=== PATIENT | male | born 1960 | race Caucasian/White ===

== ENCOUNTER 2017-12-23 20:22 | Emergency (ER) | payer OTHER ==
[~2017-12-23] VITALS: Ht 175.3 cm; Wt 59.2 kg
[~2017-12-23 20:22] MED LIST: ALEVE220 M1 PO; AMOXICILLIN500 MG; AMOXICILLIN500 MG PO; CALADRYL EX; CEPHALEXIN500 MG OR; FLEXERIL PO; HYDROXYZ PAM50 MG PO; IBUPROFEN200 MG PO; LEVETIRACETAM500 MG PO; LORTAB 5 OR; LORTAB 5-325 MG1 TAB PO; MEDROL4 M1 OR; MOTRIN800 MG PO; NAPROXEN500 MG OR; NO HOME MEDS; PERCOCET 5/325M1 TAB PO; ROBITUSSIN AC10 ML PO; TESSALON PER100 MG PO; ULTRAM50 M1 PO; VENTOLIN HFA IN; VOLTAREN OP; ZITHROMAX250 MG PO; ZITHROMAX500 MG OR; ZPAK PO
[2017-12-23 21:04] LABS: INFLUENZA A NONE DETECTED (NONE DETECT); INFLUENZA B NONE DETECTED (NONE DETECT)
[2017-12-23] MEDS ORDERED: TAM75CAP PO (21:15)
[2017-12-23 21:49] LABS: ALBUMIN 4.1 g/dL (3.2-5.0); ALKALINE PHOSPHATASE 80 u/l (38-126); ANION GAP 15 (6-22 (CALC)); BILIRUBIN, TOTAL 0.4 mg/dL (0.0-1.4); BUN 13 mg/dL (9-20); BUN/CREATININE RATIO 13 (12-20 (CALC)); CARBON DIOXIDE 25 mmol/l (22-30); CHLORIDE 105 mmol/l (95-108); GFR > 60 ML/MIN (>=60 (CALC)); GFR FOR AFR.AMER. > 60 ML/MIN (>=60 (CALC)); SGOT/AST 25 u/l (17-59); SGPT/ALT 28 u/l (21-72); SODIUM 140 mmol/l (137-146)
[2017-12-23 21:56] LABS: HEMATOCRIT 40.4 % (39.0-50.0); HEMOGLOBIN 14.2 g/dl (14.0-18.0); IMMATURE GRANULOCYTES 0.2 % (0.0-1.0); MEAN CELL VOLUME 94.6 fL CALC (80.0-100.0); MEAN CORPUSCULAR HGB 33.3 pG CALC (26.0-32.0); MEAN CORPUSCULAR HGB CONC 35.1 g/L CALC (32.0-36.0); NEUT# 3.92 thou/uL (1.82-7.42); RED BLOOD COUNT 4.27 mill/uL (4.70-6.10); RED CELL DISTRI WIDTH 11.8 % (11.5-15.5)
[2017-12-23 22:50] VITALS: BP 135/78
== END 2017-12-23 22:51 | disposition home or self-care (01) | DRG 153 ==
LOC: ED 20:22
PROVIDERS: Family Medicine
DX: J11.1 Influenza due to unidentified influenza virus with other respiratory manifestations (principal); G40.909 Epilepsy, unspecified, not intractable, without status epilepticus

== ENCOUNTER 2018-01-21 18:50 | Observation (INO) | payer OTHER ==
[~2018-01-21] VITALS: Ht 175.3 cm; Wt 60.3 kg
[~2018-01-21 18:50] MED LIST changes: +TAM75CAP PO
--- NOTE | 2018-01-21 18:55 | NUR ---
RECEIVED VIA EMS. FOUND ON BATHROOM FLOOR. VALIUM 10MG IV GIVEN BY EMS. PT WITH C-COLLAR ON BACKBOARD.
--- NOTE | 2018-01-21 19:24 | NUR ---
PT TO CT.
[2018-01-21 19:29] LABS: HEMATOCRIT 41.5 % (39.0-50.0); HEMOGLOBIN 13.9 g/dl (14.0-18.0); IMMATURE GRANULOCYTES 0.2 % (0.0-1.0); MEAN CELL VOLUME 97.9 fL CALC (80.0-100.0); MEAN CORPUSCULAR HGB 32.8 pG CALC (26.0-32.0); MEAN CORPUSCULAR HGB CONC 33.5 g/L CALC (32.0-36.0); NEUT# 4.61 thou/uL (1.82-7.42); RED BLOOD COUNT 4.24 mill/uL (4.70-6.10); RED CELL DISTRI WIDTH 12.4 % (11.5-15.5)
--- NOTE | 2018-01-21 19:45 | NUR ---
RETURNED FROM CT.
[2018-01-21 20:00] LABS: ALBUMIN 3.8 g/dL (3.2-5.0); ALKALINE PHOSPHATASE 71 u/l (38-126); ANION GAP 15 (6-22 (CALC)); BILIRUBIN, TOTAL 0.7 mg/dL (0.0-1.4); BUN 16 mg/dL (9-20); BUN/CREATININE RATIO 17 (12-20 (CALC)); CARBON DIOXIDE 25 mmol/l (22-30); CHLORIDE 108 mmol/l (95-108); GFR > 60 ML/MIN (>=60 (CALC)); GFR FOR AFR.AMER. > 60 ML/MIN (>=60 (CALC)); POTASSIUM 3.8 mmol/l (3.5-5.1); SGOT/AST 30 u/l (17-59); SGPT/ALT 29 u/l (21-72); SODIUM 144 mmol/l (137-146); TOTAL PROTEIN 6.6 g/dL (6.3-8.2)
--- NOTE | 2018-01-21 20:02 | NUR ---
DR PEARL AT BEDSIDE. REMOVED C-COLLAR AND PT FROM BACKBOARD.
[2018-01-21 20:12] LABS: MYOGLOBIN 124 ng/mL (0 - 121)
--- NOTE | 2018-01-21 20:17 | NUR ---
PT SPEECH CLEAR, MOVES ALL EXTREMITIES. FAMILY AT BEDSIDE.
--- NOTE | 2018-01-21 20:55 | NUR ---
PT WITH EYES CLOSED, EVEN AND UNLABORED RESP. CALL CORNEJO IN REACH.
[2018-01-21 21:25] LABS: URINE BILIRUBIN - DIPSTICK NEGATIVE (NEGATIVE); URINE BLOOD DIPSTICK SMALL (NEGATIVE); URINE COLOR YELLOW; URINE GLUCOSE - DIPSTICK NEGATIVE (NEGATIVE); URINE KETONE 15 mg/dL (NEGATIVE); URINE LEUK ESTERASE NEGATIVE (NEGATIVE); URINE NITRITE - DIPSTICK NEGATIVE (Negative); URINE PROTEIN - DIPSTICK NEGATIVE (NEG-TRACE); URINE UROBILINOGEN - DIPSTICK 0.2 E.U./dL (0.2)
[2018-01-21 21:26] LABS: URINE CLARITY CLEAR; URINE SQUAMOUS EPITHELIAL CELL FEW EPI/hpf (0-FEW)
[2018-01-21 21:33] LABS: BARBITURATES NEGATIVE (NEGATIVE); COCAINE NEGATIVE (NEGATIVE); METHADONE NEGATIVE (NEGATIVE); OXCYCODONE NEGATIVE (NEGATIVE); TETRAHYDROCANNABIONOL NEGATIVE (NEGATIVE); TRICYLIC ANTIDEPRESSANTS NEGATIVE (NEGATIVE)
--- NOTE | 2018-01-21 21:46 | NUR ---
S/O WENT THROUGH PTS CLOTHES.
--- NOTE | 2018-01-21 22:49 | NUR ---
PT RESPONDS TO LOUD VERBAL STIMULI. ORIENTED TO PERSON, PLACE. INFORMED OF ADM.
--- NOTE | 2018-01-21 23:22 | NUR ---
REPORT CALLED TO [facility].
[2018-01-21 23:30] VITALS: BP 117/79
--- NOTE | 2018-01-21 23:30 | NUR ---
PT TO 279 ON TELE WITH RN.
--- NOTE | 2018-01-21 23:30 | NUR ---
PT ARRIVED TO THE FLOOR WITH ER STAFF. PT TRANSFERED TO BED X3 PERSON ASSIST. PT LETHARGIC. VITAL SIGNS OBTAINED. PT ORIENTED TO ROOM AND CALL LIGHT SYSTEM. RESP EVEN AND UNLABORED; NO DISTRESS NOTED. TELE IN PLACE. ABD SOFT; ACTIVE BOWEL SOUNDS NOTED. PT CONTINUED TO HAVE EYES CLOSED WHILE ANSWERING ADMIT QUESTIONS. PEDAL PULSES PALPATED BILAT. PT LOWER EXTREMITIES CLEANED UP DUE TO HAVING DIRT ON FEET. IV LAC PATENT; FLUSHED WITHOUT DIFFICULTY. IV RAC PATENT; FLUSHED WITHOUT DIFFICULTY. SEIZURE PRECAUTIONS IN PLACE; SUCTION AT BEDSIDE. FAMILY MEMBER AT BEDSIDE. SAFETY PRECAUTIONS REINFORCED. PT ENCOURAGED TO CALL FOR ASSISTANCE. WILL MONITOR CLOSELY; FREQUENT ROUNDS MADE. CALL LIGHT WITHIN REACH.
--- NOTE | 2018-01-22 00:08 | NUR ---
PT STATES PAIN IN LOWER BACK; CALLED. NEW ORDER RECIEVED AT THIS TIME. WILL MONITOR CLOSELY. CALL LIGHT WITHIN REACH.
--- NOTE | 2018-01-22 02:46 | NUR ---
ROUNDS MADE; FAMILY OF PT STATED THE PT WAS STANDING UP BY SIDE OF BED. BED ALARM ON FOR SAFETY. PT RESTING IN BED WITH EYES CLOSED UPON ENTRY. RESP EVEN AND UNLABORED. TELE IN PLACE. IV PATENT; NO REDNESS OR EDEMA NOTED. CALL LIGHT WITHIN REACH.
[2018-01-22 04:24] VITALS: BP 114/63
--- NOTE | 2018-01-22 04:40 | NUR ---
ROUNDS MADE; PT WOKE TO SPEECH. RESP EVEN AND UNLABORED. PT WILL OPEN EYES WHEN ASKED. TELE IN PLACE. IV PATENT; NO REDNESS OR EDEMA NOTED. CALL LIGHT WITHIN REACH.
[2018-01-22 05:26] LABS: HEMATOCRIT 40.5 % (39.0-50.0); HEMOGLOBIN 13.5 g/dl (14.0-18.0); IMMATURE GRANULOCYTES 0.3 % (0.0-1.0); MEAN CELL VOLUME 98.3 fL CALC (80.0-100.0); MEAN CORPUSCULAR HGB 32.8 pG CALC (26.0-32.0); MEAN CORPUSCULAR HGB CONC 33.3 g/L CALC (32.0-36.0); NEUT# 4.9 thou/uL (1.82-7.42); RED BLOOD COUNT 4.12 mill/uL (4.70-6.10); RED CELL DISTRI WIDTH 12.3 % (11.5-15.5)
[2018-01-22 05:48] LABS: ANION GAP 15 (6-22 (CALC)); BUN 14 mg/dL (9-20); BUN/CREATININE RATIO 17 (12-20 (CALC)); CARBON DIOXIDE 22 mmol/l (22-30); CHLORIDE 109 mmol/l (95-108); CREATININE 0.8 mg/dL (0.7-1.3); GFR > 60 ML/MIN (>=60 (CALC)); GFR FOR AFR.AMER. > 60 ML/MIN (>=60 (CALC)); POTASSIUM 4.2 mmol/l (3.5-5.1); SODIUM 142 mmol/l (137-146)
--- NOTE | 2018-01-22 07:00 | NUR ---
SHIFT CHANGE REPORT FROM FAN, PT SLEEPING, AROUSES TO AND RESPONDS VERBAL/TACTILE STIMULI, ANSWERS APPROPRIATE BUT DOES NOT OPEN EYES, DENIES PAIN, BED RAILS PADDED, IVF INFUSING, TELE MONITOR IN PLACE, BED ALARM ON, CALL CORNEJO IN REACH, SPOUSE IN ROOM.
[2018-01-22 08:15] VITALS: BP 115/71
[2018-01-22 11:00] VITALS: BP 116/64
--- NOTE | 2018-01-22 12:00 | NUR ---
PT SLEPT ALL AM, SPOUSE CALLED REPORTING HE WAS VOMITTING, ON ASSESSMENT PT HAD LIQUID VOMIT ON CLOTHING. BED BATH & LINNEN CHANGE DONE, WILL ADDRESS CONCERNS [place], CALL [place]NEJO IN REACH, BED ALARM ON.
[2018-01-22 16:00] VITALS: BP 116/74
[2018-01-22] MEDS ORDERED: LEVETIRACETAM500 MG PO (18:08)
--- NOTE | 2018-01-22 18:45 | NUR ---
AWAKE AND ALERT NOW, MORE TALKATIVE, STATES HE STILL HAS BACK PAIN BUT IMPROVED, EYES OPENED, EDUCATED ON IMPORTANCE OF TAKING MEDS PRESCRIBED.
--- NOTE | 2018-01-22 19:05 | NUR ---
Discharge instructions given. Patient verbalizes understanding of same. Discharged in stable condition via Wheelchair to Home with spouse. All belongings sent with pt.
== END 2018-01-22 19:05 | disposition home or self-care (01) | DRG 101 ==
LOC: ED 18:50 → ED-I 22:05 → ED 23:00 → MS2 23:01
PROVIDERS: Emergency Medicine; ADMIT Internal Medicine; ATTEND Internal Medicine
DX: G40.409 Other generalized epilepsy and epileptic syndromes, not intractable, without status epilepticus (principal); F17.210 Nicotine dependence, cigarettes, uncomplicated; Z91.14 Patient's other noncompliance with medication regimen
CPT/HCPCS: G0378; J2060; J3360

== ENCOUNTER 2018-01-24 20:53 | Emergency (ER) | payer OTHER ==
[~2018-01-24] VITALS: Ht 175.3 cm; Wt 66.0 kg
[2018-01-24] MEDS ORDERED: FLEXERIL PO (23:05)
[2018-01-24] MEDS ORDERED: ULTRAM50 M1 PO (23:05)
[2018-01-24 23:15] VITALS: BP 130/80
== END 2018-01-24 23:15 | disposition home or self-care (01) | DRG 552 ==
LOC: ED 20:53
DX: S33.5XXA Sprain of ligaments of lumbar spine, initial encounter (principal); M47.816 Spondylosis without myelopathy or radiculopathy, lumbar region; G40.909 Epilepsy, unspecified, not intractable, without status epilepticus; W19.XXXA Unspecified fall, initial encounter

== ENCOUNTER 2018-10-28 19:28 | Emergency (ER) | payer OTHER ==
[~2018-10-28] VITALS: Ht 175.3 cm; Wt 65.9 kg
[2018-10-28 20:09] LABS: HEMATOCRIT 45.1 % (39.0-50.0); IMMATURE GRANULOCYTES 0.2 % (0.0-5.0); MEAN CELL VOLUME 94.7 fL CALC (80.0-100.0); MEAN CORPUSCULAR HGB 32.6 pG CALC (26.0-32.0); MEAN CORPUSCULAR HGB CONC 34.4 g/L CALC (32.0-36.0); NEUT# 3.49 thou/uL (1.82-7.42); RED BLOOD COUNT 4.76 mill/uL (4.70-6.10); RED CELL DISTRI WIDTH 11.8 % (11.5-15.5)
[2018-10-28 20:11] LABS: HEMOGLOBIN 15.5 g/dl (14.0-18.0)
[2018-10-28 20:25] LABS: ALBUMIN 4.4 g/dL (3.2-5.0); ALKALINE PHOSPHATASE 90 u/l (38-126); AMYLASE 52 u/l (30-110); ANION GAP 16 (6-22 (CALC)); BILIRUBIN, TOTAL 0.7 mg/dL (0.0-1.4); BUN 17 mg/dL (9-20); BUN/CREATININE RATIO 19 (12-20 (CALC)); CARBON DIOXIDE 26 mmol/l (22-30); CHLORIDE 101 mmol/l (95-108); CREATININE 0.9 mg/dL (0.7-1.3); GFR > 60 ML/MIN (>=60 (CALC)); GFR FOR AFR.AMER. > 60 ML/MIN (>=60 (CALC)); LIPASE 81 u/l (23-300); SGOT/AST 34 u/l (17-59); SODIUM 140 mmol/l (137-146); TOTAL PROTEIN 7.5 g/dL (6.3-8.2)
[2018-10-28 20:55] LABS: URINE BILIRUBIN - DIPSTICK NEGATIVE (NEGATIVE); URINE BLOOD DIPSTICK SMALL (NEGATIVE); URINE COLOR YELLOW; URINE GLUCOSE - DIPSTICK NEGATIVE (NEGATIVE); URINE KETONE 15 mg/dL (NEGATIVE); URINE LEUK ESTERASE NEGATIVE (NEGATIVE); URINE NITRITE - DIPSTICK NEGATIVE (Negative); URINE PROTEIN - DIPSTICK NEGATIVE (NEG-TRACE); URINE SPECIFIC GRAVITY >=1.030; URINE UROBILINOGEN - DIPSTICK 0.2 E.U./dL (0.2)
[2018-10-28] MEDS ORDERED: LOMOTIL2.5 MG PO (21:32)
[2018-10-28 21:34] VITALS: BP 125/82
[2018-10-28 21:36] LABS: URINE SQUAMOUS EPITHELIAL CELL FEW EPI/hpf (0-FEW)
== END 2018-10-28 21:38 | disposition home or self-care (01) | DRG 392 ==
LOC: ED 19:28
PROVIDERS: Family Medicine
DX: A08.4 Viral intestinal infection, unspecified (principal); R10.33 Periumbilical pain; R19.7 Diarrhea, unspecified

== ENCOUNTER 2019-01-04 11:54 | Emergency (ER) | payer SELFPAY ==
[~2019-01-04] VITALS: Ht 175.3 cm; Wt 65.0 kg
[~2019-01-04 11:54] MED LIST changes: +LOMOTIL2.5 MG PO
[2019-01-04] MEDS ORDERED: TORADOL PO ×2 (13:27→13:49)
[2019-01-04] MEDS ORDERED: CORTISPORIN OTI10 M2 AU ×2 (13:27→13:49)
[2019-01-04] MEDS ORDERED: AMOXICILLIN500 MG PO ×2 (13:27→13:49)
[2019-01-04 13:30] VITALS: BP 139/77
== END 2019-01-04 13:58 | disposition home or self-care (01) | DRG 153 ==
LOC: ED 11:54
DX: H66.92 Otitis media, unspecified, left ear (principal); G40.909 Epilepsy, unspecified, not intractable, without status epilepticus

== ENCOUNTER 2019-04-27 21:29 | Emergency (ER) | payer SELFPAY ==
[~2019-04-27] VITALS: Ht 175.3 cm; Wt 56.8 kg
[~2019-04-27 21:29] MED LIST changes: +CORTISPORIN OTI10 M2 AU; +TORADOL PO
[2019-04-27 22:23] LABS: HEMATOCRIT 41.6 % (39.0-50.0); HEMOGLOBIN 13.9 g/dl (14.0-18.0); IMMATURE GRANULOCYTES 0.2 % (0.0-5.0); MEAN CORPUSCULAR HGB 32.4 pG CALC (26.0-32.0); MEAN CORPUSCULAR HGB CONC 33.4 g/L CALC (32.0-36.0); NEUT# 3.39 thou/uL (1.82-7.42); RED BLOOD COUNT 4.29 mill/uL (4.70-6.10); RED CELL DISTRI WIDTH 12.1 % (11.5-15.5)
[2019-04-27 22:48] LABS: ALBUMIN 4.1 g/dL (3.2-5.0); ALKALINE PHOSPHATASE 87 u/l (38-126); ANION GAP 16 (6-22 (CALC)); BILIRUBIN, TOTAL 0.6 mg/dL (0.0-1.4); BUN 17 mg/dL (9-20); BUN/CREATININE RATIO 21 (12-20 (CALC)); CARBON DIOXIDE 24 mmol/l (22-30); CHLORIDE 106 mmol/l (95-108); CREATININE 0.8 mg/dL (0.7-1.3); ETHYL ALCOHOL 79 mg/dl (0-30); GFR > 60 ML/MIN (>=60 (CALC)); GFR FOR AFR.AMER. > 60 ML/MIN (>=60 (CALC)); POTASSIUM 4.3 mmol/l (3.5-5.1); SGOT/AST 30 u/l (17-59); SODIUM 141 mmol/l (137-146); TOTAL PROTEIN 6.9 g/dL (6.3-8.2)
[2019-04-27 23:38] LABS: URINE BILIRUBIN - DIPSTICK NEGATIVE (NEGATIVE); URINE BLOOD DIPSTICK TRACE-LYSED (NEGATIVE); URINE COLOR YELLOW; URINE GLUCOSE - DIPSTICK NEGATIVE (NEGATIVE); URINE KETONE NEGATIVE (NEGATIVE); URINE LEUK ESTERASE NEGATIVE (NEGATIVE); URINE NITRITE - DIPSTICK NEGATIVE (Negative); URINE PROTEIN - DIPSTICK NEGATIVE (NEG-TRACE); URINE SPECIFIC GRAVITY 1.015; URINE UROBILINOGEN - DIPSTICK 0.2 E.U./dL (0.2)
[2019-04-27 23:43] LABS: BARBITURATES NEGATIVE (NEGATIVE); COCAINE NEGATIVE (NEGATIVE); METHADONE NEGATIVE (NEGATIVE); OXCYCODONE NEGATIVE (NEGATIVE); TETRAHYDROCANNABIONOL NEGATIVE (NEGATIVE); TRICYLIC ANTIDEPRESSANTS NEGATIVE (NEGATIVE)
[2019-04-28] MEDS ORDERED: KEPPRA1000 MG PO (00:16)
[2019-04-28 00:35] VITALS: BP 107/72
== END 2019-04-28 00:35 | disposition home or self-care (01) | DRG 101 ==
LOC: ED 21:29
PROVIDERS: Family Medicine
DX: G40.909 Epilepsy, unspecified, not intractable, without status epilepticus (principal); T42.76XA Underdosing of unspecified antiepileptic and sedative-hypnotic drugs, initial encounter; Z91.128 Patient's intentional underdosing of medication regimen for other reason
CPT/HCPCS: J1953

== ENCOUNTER 2019-08-20 15:06 | Emergency (ER) | payer SELFPAY ==
[~2019-08-20] VITALS: Ht 175.3 cm; Wt 65.0 kg
[~2019-08-20 15:06] MED LIST changes: +KEPPRA1000 MG PO
[2019-08-20 15:31] LABS: URINE BILIRUBIN - DIPSTICK NEGATIVE (NEGATIVE); URINE BLOOD DIPSTICK LARGE (NEGATIVE); URINE COLOR YELLOW; URINE GLUCOSE - DIPSTICK NEGATIVE (NEGATIVE); URINE KETONE NEGATIVE (NEGATIVE); URINE NITRITE - DIPSTICK NEGATIVE (Negative); URINE PH 5.5 (4.5-8.0); URINE PROTEIN - DIPSTICK 100 mg/dL (NEG-TRACE); URINE SPECIFIC GRAVITY 1.025; URINE UROBILINOGEN - DIPSTICK 0.2 E.U./dL (0.2)
[2019-08-20 15:32] LABS: URINE LEUK ESTERASE MODERATE (NEGATIVE)
[2019-08-20 15:46] LABS: URINE WBC >100 WBC/hpf (0-5)
[2019-08-20] MEDS ORDERED: PYRIDIUM200 MG PO (16:24)
[2019-08-20] MEDS ORDERED: KEFLEX500 M1 PO (16:24)
[2019-08-20 16:30] VITALS: BP 129/74
== END 2019-08-20 16:30 | disposition home or self-care (01) | DRG 690 ==
LOC: ED 15:06
PROVIDERS: Family Medicine
DX: N39.0 Urinary tract infection, site not specified (principal); B96.20 Unspecified Escherichia coli [E. coli] as the cause of diseases classified elsewhere

== ENCOUNTER 2020-07-01 10:56 | Emergency (ER) | payer SELFPAY ==
[~2020-07-01] VITALS: Ht 175.3 cm; Wt 65.9 kg
[~2020-07-01 10:56] MED LIST changes: +KEFLEX500 M1 PO; +PYRIDIUM200 MG PO
[2020-07-01 11:55] VITALS: BP 141/81
== END 2020-07-01 11:55 | disposition home or self-care (01) | DRG 923 ==
LOC: ED 10:56
DX: Z04.2 Encounter for examination and observation following work accident (principal)

== ENCOUNTER 2022-06-05 17:24 | Emergency (ER) | payer SELFPAY ==
[~2022-06-05] VITALS: Ht 175.3 cm; Wt 65.9 kg
[2022-06-05] MEDS ORDERED: AMOX/K CLAV875 M1 PO (17:36)
[2022-06-05 17:44] VITALS: BP 128/79
[2022-06-05 17:51] VITALS: BP 128/79
[2022-06-05 18:00] VITALS: BP 120/73
[2022-06-06] MEDS ORDERED: VOLTAREN75 MG PO (18:25)
[2022-06-06] MEDS ORDERED: TYLENOL # 31 TA1 PO (18:25)
== END 2022-06-05 18:20 | disposition home or self-care (01) | DRG 159 ==
LOC: ED 17:24
DX: K08.89 Other specified disorders of teeth and supporting structures (principal); K05.10 Chronic gingivitis, plaque induced; G40.909 Epilepsy, unspecified, not intractable, without status epilepticus

== ENCOUNTER 2022-06-06 17:18 | Emergency (ER) | payer SELFPAY ==
[~2022-06-06] VITALS: Ht 175.3 cm; Wt 79.5 kg
[~2022-06-06 17:18] MED LIST changes: +AMOX/K CLAV875 M1 PO
[2022-06-06 17:28] VITALS: BP 137/74
[2022-06-06 17:30] VITALS: BP 131/74
[2022-06-06 18:00] VITALS: BP 139/64
[2022-06-06] MEDS ORDERED: TYLENOL # 31 TA1 PO (18:25)
[2022-06-06] MEDS ORDERED: VOLTAREN75 MG PO (18:25)
[2022-06-06 18:40] VITALS: BP 139/64
== END 2022-06-06 18:48 | disposition home or self-care (01) | DRG 159 ==
LOC: ED 17:18
DX: K04.7 Periapical abscess without sinus (principal); G40.909 Epilepsy, unspecified, not intractable, without status epilepticus; K02.9 Dental caries, unspecified

== ENCOUNTER 2022-06-23 20:09 | Emergency (ER) | payer SELFPAY ==
[~2022-06-23 20:09] MED LIST changes: +TYLENOL # 31 TA1 PO; +VOLTAREN75 MG PO
== END 2022-06-23 21:10 | disposition left against medical advice (07) | DRG 951 ==
LOC: ED 20:09 → LWOBS 21:09
DX: Z53.21 Procedure and treatment not carried out due to patient leaving prior to being seen by health care provider (principal)

== ENCOUNTER 2022-07-03 09:36 | Emergency (ER) | payer SELFPAY ==
[~2022-07-03] VITALS: Ht 175.3 cm; Wt 61.2 kg
[2022-07-03] MEDS ORDERED: FLEXERIL5 M1 PO (11:34)
[2022-07-03 11:53] VITALS: BP 124/72
== END 2022-07-03 11:59 | disposition home or self-care (01) | DRG 556 ==
LOC: ED 09:36
DX: M25.522 Pain in left elbow (principal); G40.909 Epilepsy, unspecified, not intractable, without status epilepticus

== ENCOUNTER 2022-07-06 19:43 | Observation (INO) | payer SELFPAY ==
[2022-07-06] VITALS (17 sets, daily range): BP systolic 87–125; BP diastolic 45–95
[~2022-07-06] VITALS: Ht 175.3 cm; Wt 63.5 kg
[~2022-07-06 19:43] MED LIST changes: +FLEXERIL5 M1 PO
[2022-07-06 20:24] LABS: HEMOGLOBIN 13.3 g/dl (14.0-18.0); IMMATURE GRANULOCYTES 0.1 % (0.0-5.0); MEAN CELL VOLUME 99.8 fL CALC (80.0-100.0); MEAN CORPUSCULAR HGB 33.2 pG CALC (26.0-32.0); MEAN CORPUSCULAR HGB CONC 33.3 g/dL CAL (32.0-36.0); NEUT# 5.46 thou/uL (1.82-7.42); RED BLOOD COUNT 4.01 mill/uL (4.70-6.10)
[2022-07-06 20:25] LABS: URINE BILIRUBIN - DIPSTICK NEGATIVE (NEGATIVE); URINE BLOOD DIPSTICK NEGATIVE (NEGATIVE); URINE COLOR YELLOW; URINE GLUCOSE - DIPSTICK NEGATIVE (NEGATIVE); URINE KETONE NEGATIVE (NEGATIVE); URINE LEUK ESTERASE NEGATIVE (NEGATIVE); URINE PH 5.5 (4.5-8.0); URINE PROTEIN - DIPSTICK NEGATIVE (NEG-TRACE); URINE UROBILINOGEN - DIPSTICK 0.2 E.U./dL (0.2)
[2022-07-06 20:28] LABS: URINE NITRITE - DIPSTICK NEGATIVE (Negative)
[2022-07-06 20:40] LABS: ALBUMIN 4.2 g/dL (3.2-5.0); ALKALINE PHOSPHATASE 73 u/l (38-126); ANION GAP 13 (6-22 (CALC)); BUN 14 mg/dL (8-23); BUN/CREATININE RATIO 13 (12-20 (CALC)); CARBON DIOXIDE 28 mmol/l (22-30); CHLORIDE 103 mmol/l (95-108); CREATININE 1.1 mg/dL (0.7-1.3); ETHYL ALCOHOL 82 mg/dl (0-30); GFR FOR AFR.AMER. > 60 ML/MIN (>=60 (CALC)); GFR OTHER RACES > 60 ML/MIN (>=60 (CALC)); POTASSIUM 3.6 mmol/l (3.5-5.1); SGOT/AST 34 u/l (19-48); SODIUM 139 mmol/l (137-146); TOTAL PROTEIN 7.3 g/dL (6.3-8.2)
[2022-07-06 20:41] LABS: BILIRUBIN, TOTAL 0.9 mg/dL (0.0-1.4)
[2022-07-06 20:51] LABS: MYOGLOBIN 151 ng/mL (0 - 121)
[2022-07-07 04:17] VITALS: BP 110/67
[2022-07-07 05:54] VITALS: BP 101/73
[2022-07-07 06:35] VITALS: BP 101/73
[2022-07-07 12:13] VITALS: BP 138/80
[2022-07-07 15:00] VITALS: BP 117/67
[2022-07-07 15:35] VITALS: BP 117/67
== END 2022-07-07 18:24 | disposition home or self-care (01) | DRG 101 ==
LOC: ED 19:43 → ED-I 22:15 → ED 22:30 → MS2 22:31
PROVIDERS: Emergency Medicine; ADMIT Internal Medicine; ATTEND Internal Medicine
DX: G40.409 Other generalized epilepsy and epileptic syndromes, not intractable, without status epilepticus (principal); F17.200 Nicotine dependence, unspecified, uncomplicated; T42.76XA Underdosing of unspecified antiepileptic and sedative-hypnotic drugs, initial encounter; Z91.128 Patient's intentional underdosing of medication regimen for other reason; Z20.822 Contact with and (suspected) exposure to COVID-19
CPT/HCPCS: G0378; J1953; J2060

== ENCOUNTER 2022-07-23 19:12 | Emergency (ER) | payer SELFPAY ==
[~2022-07-23] VITALS: Ht 175.3 cm; Wt 63.6 kg
[2022-07-23] MEDS ORDERED: AMOXICILLIN500 MG PO (20:31)
[2022-07-23] MEDS ORDERED: ULTRAM50 M1 PO (20:31)
[2022-07-23 20:43] VITALS: BP 145/80
== END 2022-07-23 20:58 | disposition home or self-care (01) | DRG 159 ==
LOC: ED 19:12
DX: K04.7 Periapical abscess without sinus (principal); G40.909 Epilepsy, unspecified, not intractable, without status epilepticus

== ENCOUNTER 2022-08-05 19:48 | Emergency (ER) | payer SELFPAY ==
[~2022-08-05] VITALS: Ht 175.3 cm; Wt 61.3 kg
[2022-08-05] MEDS ORDERED: TESSALON PERLE100 MG PO (20:26)
[2022-08-05] MEDS ORDERED: ZPAK PO (20:26)
[2022-08-05 20:43] LABS: HEMATOCRIT 43.2 % (39.0-50.0); HEMOGLOBIN 14.4 g/dl (14.0-18.0); IMMATURE GRANULOCYTES 0.1 % (0.0-5.0); MEAN CORPUSCULAR HGB 33.3 pG CALC (26.0-32.0); MEAN CORPUSCULAR HGB CONC 33.3 g/dL CAL (32.0-36.0); NEUT# 7.65 thou/uL (1.82-7.42); RED BLOOD COUNT 4.32 mill/uL (4.70-6.10); RED CELL DISTRI WIDTH 11.7 % (11.5-15.5)
[2022-08-05 21:02] LABS: ALKALINE PHOSPHATASE 86 u/l (38-126); ANION GAP 11 (6-22 (CALC)); BUN 11 mg/dL (8-23); BUN/CREATININE RATIO 14 (12-20 (CALC)); CARBON DIOXIDE 24 mmol/l (22-30); CHLORIDE 105 mmol/l (95-108); CREATININE 0.8 mg/dL (0.7-1.3); GFR FOR AFR.AMER. > 60 ML/MIN (>=60 (CALC)); GFR OTHER RACES > 60 ML/MIN (>=60 (CALC)); POTASSIUM 3.7 mmol/l (3.5-5.1); SGOT/AST 29 u/l (19-48); SODIUM 136 mmol/l (137-146); TOTAL PROTEIN 7.5 g/dL (6.3-8.2)
[2022-08-05 21:03] LABS: BILIRUBIN, TOTAL 0.5 mg/dL (0.0-1.4)
[2022-08-05 21:15] VITALS: BP 122/81
[2022-08-05 21:30] VITALS: BP 87/54
[2022-08-05 21:31] VITALS: BP 127/78
[2022-08-05 21:50] VITALS: BP 127/78
== END 2022-08-05 21:47 | disposition home or self-care (01) | DRG 203 ==
LOC: ED 19:48
PROVIDERS: Emergency Medicine
DX: J20.9 Acute bronchitis, unspecified (principal); G40.909 Epilepsy, unspecified, not intractable, without status epilepticus; Z20.822 Contact with and (suspected) exposure to COVID-19

== ENCOUNTER 2022-11-05 20:03 | Emergency (ER) | payer SELFPAY ==
[2022-11-05] VITALS (12 sets, daily range): BP systolic 108–136; BP diastolic 61–95
[~2022-11-05] VITALS: Ht 175.3 cm; Wt 77.2 kg
[~2022-11-05 20:03] MED LIST changes: +TESSALON PERLE100 MG PO
[2022-11-05 20:36] LABS: BASO% 0.8 % (0-3); EOS% 4.7 % (0-8); HEMATOCRIT 39.6 % (39.0-50.0); HEMOGLOBIN 13.8 g/dl (14.0-18.0); LYMPH% 29.4 % (15-41); MEAN CELL VOLUME 97.1 fL CALC (80.0-100.0); MEAN CORPUSCULAR HGB 33.8 pG CALC (26.0-32.0); MEAN CORPUSCULAR HGB CONC 34.8 g/dL CAL (32.0-36.0); MONO% 8.4 % (2-13); NEUT# 2.78 thou/uL (1.82-7.42); NEUT% 56.7 % (42-76); RED BLOOD COUNT 4.08 mill/uL (4.70-6.10); RED CELL DISTRI WIDTH 11.7 % (11.5-15.5)
[2022-11-05 20:53] LABS: ALBUMIN 4.1 g/dL (3.2-5.0); ALKALINE PHOSPHATASE 59 u/l (38-126); ANION GAP 12 (6-22 (CALC)); BILIRUBIN, TOTAL 0.3 mg/dL (0.0-1.4); BUN 15 mg/dL (8-23); BUN/CREATININE RATIO 18 (12-20 (CALC)); CARBON DIOXIDE 24 mmol/l (22-30); CHLORIDE 109 mmol/l (95-108); CREATININE 0.8 mg/dL (0.7-1.3); ETHYL ALCOHOL 59 mg/dl (0-30); GFR FOR AFR.AMER. > 60 ML/MIN (>=60 (CALC)); GFR OTHER RACES > 60 ML/MIN (>=60 (CALC)); POTASSIUM 3.8 mmol/l (3.5-5.1); SGOT/AST 31 u/l (19-48); SODIUM 140 mmol/l (137-146); TOTAL PROTEIN 7.3 g/dL (6.3-8.2)
[2022-11-05 21:04] LABS: MYOGLOBIN 45 ng/mL (0 - 121)
[2022-11-05 21:46] LABS: URINE BILIRUBIN - DIPSTICK NEGATIVE (NEGATIVE); URINE BLOOD DIPSTICK TRACE-INTACT (NEGATIVE); URINE COLOR YELLOW; URINE GLUCOSE - DIPSTICK NEGATIVE (NEGATIVE); URINE KETONE NEGATIVE (NEGATIVE); URINE LEUK ESTERASE NEGATIVE (NEGATIVE); URINE PROTEIN - DIPSTICK NEGATIVE (NEG-TRACE); URINE SPECIFIC GRAVITY 1.015; URINE UROBILINOGEN - DIPSTICK 0.2 E.U./dL (0.2)
[2022-11-05 21:47] LABS: URINE NITRITE - DIPSTICK NEGATIVE (Negative)
[2022-11-05] MEDS ORDERED: KEPPRA500 M2 PO (22:08)
[2022-11-06] MEDS ORDERED: KEPPRA500 M2 PO (16:28)
== END 2022-11-05 22:56 | disposition home or self-care (01) | DRG 101 ==
LOC: ED 20:03
PROVIDERS: Family Medicine
DX: R56.9 Unspecified convulsions (principal)
CPT/HCPCS: J1953

== ENCOUNTER 2022-11-06 14:12 | Emergency (ER) | payer SELFPAY ==
[~2022-11-06] VITALS: Ht 175.3 cm; Wt 67.0 kg
[2022-11-06] VITALS (10 sets, daily range): BP systolic 105–139; BP diastolic 58–97
[~2022-11-06 14:12] MED LIST changes: +KEPPRA500 M2 PO
[2022-11-06 14:48] LABS: BASO% 0.8 % (0-3); EOS% 4.1 % (0-8); HEMATOCRIT 41.9 % (39.0-50.0); HEMOGLOBIN 14.5 g/dl (14.0-18.0); LYMPH% 21.8 % (15-41); MEAN CELL VOLUME 98.6 fL CALC (80.0-100.0); MEAN CORPUSCULAR HGB 34.1 pG CALC (26.0-32.0); MEAN CORPUSCULAR HGB CONC 34.6 g/dL CAL (32.0-36.0); MONO% 9.5 % (2-13); NEUT# 4.23 thou/uL (1.82-7.42); NEUT% 63.8 % (42-76); RED BLOOD COUNT 4.25 mill/uL (4.70-6.10); RED CELL DISTRI WIDTH 11.8 % (11.5-15.5)
[2022-11-06 14:52] LABS: ALBUMIN 4.4 g/dL (3.2-5.0); ALKALINE PHOSPHATASE 76 u/l (38-126); ANION GAP 10 (6-22 (CALC)); BUN 17 mg/dL (8-23); BUN/CREATININE RATIO 16 (12-20 (CALC)); CARBON DIOXIDE 28 mmol/l (22-30); CHLORIDE 109 mmol/l (95-108); CREATININE 1.1 mg/dL (0.7-1.3); GFR FOR AFR.AMER. > 60 ML/MIN (>=60 (CALC)); GFR OTHER RACES > 60 ML/MIN (>=60 (CALC)); POTASSIUM 4.4 mmol/l (3.5-5.1); SGOT/AST 34 u/l (19-48); SODIUM 142 mmol/l (137-146); TOTAL PROTEIN 7.8 g/dL (6.3-8.2)
[2022-11-06 14:56] LABS: BILIRUBIN, TOTAL 0.5 mg/dL (0.0-1.4)
[2022-11-06] MEDS ORDERED: KEPPRA500 M2 PO (16:28)
== END 2022-11-06 17:20 | disposition home or self-care (01) | DRG 101 ==
LOC: ED 14:12
PROVIDERS: Family Medicine
DX: R56.9 Unspecified convulsions (principal); F10.129 Alcohol abuse with intoxication, unspecified; Y90.2 Blood alcohol level of 40-59 mg/100 ml
CPT/HCPCS: J1953

== ENCOUNTER 2022-12-11 17:19 | Emergency (ER) | payer SELFPAY ==
[~2022-12-11] VITALS: Ht 175.3 cm; Wt 66.0 kg
[2022-12-11] VITALS (10 sets, daily range): BP systolic 98–152; BP diastolic 75–89
[2022-12-11 18:28] LABS: EOS% 2.8 % (0-8); HEMATOCRIT 41.9 % (39.0-50.0); HEMOGLOBIN 14.2 g/dl (14.0-18.0); LYMPH% 28.5 % (15-41); MEAN CELL VOLUME 98.1 fL CALC (80.0-100.0); MEAN CORPUSCULAR HGB 33.3 pG CALC (26.0-32.0); MEAN CORPUSCULAR HGB CONC 33.9 g/dL CAL (32.0-36.0); MONO% 7.7 % (2-13); NEUT# 3.6 thou/uL (1.82-7.42); RED BLOOD COUNT 4.27 mill/uL (4.70-6.10); RED CELL DISTRI WIDTH 11.6 % (11.5-15.5)
[2022-12-11 18:47] LABS: ALBUMIN 4.3 g/dL (3.2-5.0); ALKALINE PHOSPHATASE 68 u/l (38-126); ANION GAP 10 (6-22 (CALC)); BILIRUBIN, TOTAL 0.4 mg/dL (0.2-1.3); BUN 16 mg/dL (8-23); BUN/CREATININE RATIO 16 (12-20 (CALC)); CARBON DIOXIDE 27 mmol/l (22-30); CHLORIDE 106 mmol/l (95-108); GFR FOR AFR.AMER. > 60 ML/MIN (>=60 (CALC)); GFR OTHER RACES > 60 ML/MIN (>=60 (CALC)); POTASSIUM 4.6 mmol/l (3.5-5.1); SGOT/AST 32 u/l (19-48); SODIUM 139 mmol/l (137-146); TOTAL PROTEIN 7.5 g/dL (6.3-8.2)
== END 2022-12-11 20:18 | disposition home or self-care (01) | DRG 101 ==
LOC: ED 17:19
PROVIDERS: Family Medicine
DX: G40.909 Epilepsy, unspecified, not intractable, without status epilepticus (principal); M25.522 Pain in left elbow; M25.561 Pain in right knee
CPT/HCPCS: J1953

== ENCOUNTER 2023-02-05 09:50 | Emergency (ER) | payer BC ==
[2023-02-05] VITALS (7 sets, daily range): BP systolic 112–138; BP diastolic 52–75
[~2023-02-05] VITALS: Ht 175.3 cm; Wt 65.0 kg
[2023-02-05 10:32] LABS: BASO% 0.1 % (0-3); EOS% 0.2 % (0-8); HEMATOCRIT 44.3 % (39.0-50.0); HEMOGLOBIN 14.5 g/dl (14.0-18.0); IMMATURE GRANULOCYTES 0.2 % (0.0-5.0); LYMPH% 7.9 % (15-41); MEAN CELL VOLUME 99.6 fL CALC (80.0-100.0); MEAN CORPUSCULAR HGB 32.6 pG CALC (26.0-32.0); MEAN CORPUSCULAR HGB CONC 32.7 g/dL CAL (32.0-36.0); MONO% 6.9 % (2-13); NEUT# 14.32 thou/uL (1.82-7.42); NEUT% 84.7 % (42-76); RED BLOOD COUNT 4.45 mill/uL (4.70-6.10)
[2023-02-05 10:37] LABS: GFR FOR AFR.AMER. > 60 ML/MIN (>=60 (CALC)); GFR OTHER RACES > 60 ML/MIN (>=60 (CALC))
[2023-02-05 10:50] LABS: ALBUMIN 4.6 g/dL (3.2-5.0); ANION GAP 12 (6-22 (CALC)); BUN 16 mg/dL (8-23); BUN/CREATININE RATIO 17 (12-20 (CALC)); CARBON DIOXIDE 28 mmol/l (22-30); CHLORIDE 100 mmol/l (95-108); CREATININE 0.9 mg/dL (0.7-1.3); GFR FOR AFR.AMER. > 60 ML/MIN (>=60 (CALC)); GFR OTHER RACES > 60 ML/MIN (>=60 (CALC)); POTASSIUM 4.1 mmol/l (3.5-5.1); SGOT/AST 35 u/l (19-48); SODIUM 136 mmol/l (137-146); TOTAL PROTEIN 8.2 g/dL (6.3-8.2)
[2023-02-05 10:58] LABS: URINE BILIRUBIN - DIPSTICK NEGATIVE (NEGATIVE); URINE BLOOD DIPSTICK SMALL (NEGATIVE); URINE COLOR YELLOW; URINE GLUCOSE - DIPSTICK NEGATIVE (NEGATIVE); URINE KETONE TRACE mg/dL (NEGATIVE); URINE LEUK ESTERASE TRACE (NEGATIVE); URINE PH 8.5 (4.5-8.0); URINE PROTEIN - DIPSTICK 30 mg/dL (NEG-TRACE); URINE SPECIFIC GRAVITY 1.015
[2023-02-05 11:01] LABS: URINE NITRITE - DIPSTICK NEGATIVE (Negative)
[2023-02-05 11:02] LABS: URINE EPITHELIAL CELLS FEW EPI/hpf (0-FEW); URINE MUCUS MODERATE hpf (NONE-FEW); URINE WBC 0-2 WBC/hpf (0-5)
[2023-02-05 11:10] LABS: ALKALINE PHOSPHATASE 103 u/l (38-126); BILIRUBIN, TOTAL 1.3 mg/dL (0.2-1.3)
[2023-02-05] MEDS ORDERED: CEFDINIR300 MG PO (12:50)
== END 2023-02-05 13:28 | disposition home or self-care (01) | DRG 696 ==
LOC: ED 09:50
PROVIDERS: Family Medicine
DX: R30.0 Dysuria (principal); R31.9 Hematuria, unspecified; G40.909 Epilepsy, unspecified, not intractable, without status epilepticus; F17.200 Nicotine dependence, unspecified, uncomplicated
CPT/HCPCS: Q9967

== ENCOUNTER 2023-02-24 18:31 | Emergency (ER) | payer BC ==
[~2023-02-24] VITALS: Ht 175.3 cm; Wt 58.5 kg
[~2023-02-24 18:31] MED LIST changes: +CEFDINIR300 MG PO
[2023-02-24 18:38] VITALS: BP 121/77
[2023-02-24 18:45] VITALS: BP 118/74
[2023-02-24] MEDS ORDERED: AMOX/K CLAV875 M1 PO (18:49)
[2023-02-24] MEDS ORDERED: ZPAK PO (18:49)
[2023-02-24 19:11] VITALS: BP 118/74
== END 2023-02-24 19:18 | disposition home or self-care (01) | DRG 159 ==
LOC: ED 18:31
DX: K08.89 Other specified disorders of teeth and supporting structures (principal); J06.9 Acute upper respiratory infection, unspecified; G40.909 Epilepsy, unspecified, not intractable, without status epilepticus; F17.200 Nicotine dependence, unspecified, uncomplicated

== ENCOUNTER 2023-04-17 09:17 | Emergency (ER) | payer BC ==
[2023-04-17] VITALS (13 sets, daily range): BP systolic 110–139; BP diastolic 59–75
[~2023-04-17] VITALS: Ht 175.3 cm; Wt 62.0 kg
[2023-04-17 09:58] LABS: BASO% 0.5 % (0-3); EOS% 4.4 % (0-8); HEMATOCRIT 42.3 % (39.0-50.0); HEMOGLOBIN 13.7 g/dl (14.0-18.0); IMMATURE GRANULOCYTES 0.1 % (0.0-5.0); LYMPH% 12.7 % (15-41); MEAN CORPUSCULAR HGB 32.4 pG CALC (26.0-32.0); MEAN CORPUSCULAR HGB CONC 32.4 g/dL CAL (32.0-36.0); MONO% 10.7 % (2-13); NEUT# 5.4 thou/uL (1.82-7.42); NEUT% 71.6 % (42-76); RED BLOOD COUNT 4.23 mill/uL (4.70-6.10); RED CELL DISTRI WIDTH 12.4 % (11.5-15.5)
[2023-04-17 10:09] LABS: ALBUMIN 4.1 g/dL (3.2-5.0); ALKALINE PHOSPHATASE 76 u/l (38-126); ANION GAP 7 (6-22 (CALC)); BILIRUBIN, TOTAL 0.5 mg/dL (0.2-1.3); BUN 11 mg/dL (8-23); BUN/CREATININE RATIO 11 (12-20 (CALC)); CARBON DIOXIDE 29 mmol/l (22-30); CHLORIDE 106 mmol/l (95-108); GFR FOR AFR.AMER. > 60 ML/MIN (>=60 (CALC)); GFR OTHER RACES > 60 ML/MIN (>=60 (CALC)); POTASSIUM 4.3 mmol/l (3.5-5.1); SGOT/AST 27 u/l (19-48); SODIUM 138 mmol/l (137-146); TOTAL PROTEIN 7.3 g/dL (6.3-8.2)
[2023-04-17] MEDS ORDERED: ZPAK PO (12:17)
== END 2023-04-17 13:02 | disposition left against medical advice (07) | DRG 313 ==
LOC: ED 09:17 → ED-I 10:03 → ED 13:02
PROVIDERS: Family Medicine
DX: R07.9 Chest pain, unspecified (principal); J06.9 Acute upper respiratory infection, unspecified; G40.909 Epilepsy, unspecified, not intractable, without status epilepticus; F17.200 Nicotine dependence, unspecified, uncomplicated; Z53.29 Procedure and treatment not carried out because of patient's decision for other reasons; Z20.822 Contact with and (suspected) exposure to COVID-19

== ENCOUNTER 2023-05-10 14:37 | Emergency (ER) | payer BC ==
[~2023-05-10] VITALS: Ht 175.3 cm; Wt 65.2 kg
[2023-05-10] VITALS (12 sets, daily range): BP systolic 102–127; BP diastolic 65–76
[2023-05-10 16:48] LABS: BASO% 0.6 % (0-3); EOS% 0.6 % (0-8); HEMATOCRIT 42.3 % (39.0-50.0); HEMOGLOBIN 13.6 g/dl (14.0-18.0); IMMATURE GRANULOCYTES 0.1 % (0.0-5.0); MEAN CELL VOLUME 98.6 fL CALC (80.0-100.0); MEAN CORPUSCULAR HGB 31.7 pG CALC (26.0-32.0); MEAN CORPUSCULAR HGB CONC 32.2 g/dL CAL (32.0-36.0); MONO% 6.2 % (2-13); NEUT# 6.71 thou/uL (1.82-7.42); NEUT% 82.5 % (42-76); RED BLOOD COUNT 4.29 mill/uL (4.70-6.10); RED CELL DISTRI WIDTH 12.3 % (11.5-15.5)
[2023-05-10 17:02] LABS: ALBUMIN 4.2 g/dL (3.2-5.0); ALKALINE PHOSPHATASE 68 u/l (38-126); ANION GAP 12 (6-22 (CALC)); BILIRUBIN, TOTAL 0.5 mg/dL (0.2-1.3); BUN 13 mg/dL (8-23); BUN/CREATININE RATIO 15 (12-20 (CALC)); CARBON DIOXIDE 26 mmol/l (22-30); CHLORIDE 106 mmol/l (95-108); CREATININE 0.8 mg/dL (0.7-1.3); ETHYL ALCOHOL 65 mg/dl (0-30); GFR FOR AFR.AMER. > 60 ML/MIN (>=60 (CALC)); GFR OTHER RACES > 60 ML/MIN (>=60 (CALC)); LIPASE 234 u/l (23-300); POTASSIUM 4.2 mmol/l (3.5-5.1); SGOT/AST 35 u/l (19-48); SODIUM 139 mmol/l (137-146); TOTAL PROTEIN 7.4 g/dL (6.3-8.2)
[2023-05-10 17:39] LABS: URINE BILIRUBIN - DIPSTICK NEGATIVE (NEGATIVE); URINE BLOOD DIPSTICK TRACE-INTACT (NEGATIVE); URINE COLOR YELLOW; URINE GLUCOSE - DIPSTICK NEGATIVE (NEGATIVE); URINE KETONE NEGATIVE (NEGATIVE); URINE LEUK ESTERASE NEGATIVE (NEGATIVE); URINE PH 5.5 (4.5-8.0); URINE PROTEIN - DIPSTICK NEGATIVE (NEG-TRACE); URINE SPECIFIC GRAVITY 1.025; URINE UROBILINOGEN - DIPSTICK 0.2 E.U./dL (0.2)
[2023-05-10 17:41] LABS: URINE NITRITE - DIPSTICK NEGATIVE (Negative)
== END 2023-05-10 18:10 | disposition home or self-care (01) | DRG 101 ==
LOC: ED 14:37
PROVIDERS: Family Medicine
DX: G40.909 Epilepsy, unspecified, not intractable, without status epilepticus (principal); F10.90 Alcohol use, unspecified, uncomplicated; Y90.3 Blood alcohol level of 60-79 mg/100 ml; F17.200 Nicotine dependence, unspecified, uncomplicated
CPT/HCPCS: J1953

== ENCOUNTER 2023-06-25 14:55 | Emergency (ER) | payer SELFPAY ==
[~2023-06-25] VITALS: Ht 175.3 cm; Wt 77.0 kg
[2023-06-25] MEDS ORDERED: CLINDAMYCIN300 M1 PO (15:23)
[2023-06-25] MEDS ORDERED: TRAMADOL HYDROC50 M1 PO (15:23)
== END 2023-06-25 16:28 | disposition home or self-care (01) | DRG 159 ==
LOC: ED 14:55
DX: K08.89 Other specified disorders of teeth and supporting structures (principal); G40.909 Epilepsy, unspecified, not intractable, without status epilepticus; F17.200 Nicotine dependence, unspecified, uncomplicated

== ENCOUNTER 2023-11-17 18:48 | Emergency (ER) | payer OTHER ==
[2023-11-17] VITALS (13 sets, daily range): BP systolic 103–134; BP diastolic 66–91
[~2023-11-17] VITALS: Ht 175.3 cm; Wt 65.7 kg
[~2023-11-17 18:48] MED LIST changes: +CLINDAMYCIN300 M1 PO; +TRAMADOL HYDROC50 M1 PO
[2023-11-17 20:51] LABS: BASO% 0.5 % (0-3); EOS% 2.8 % (0-8); HEMATOCRIT 45.2 % (39.0-50.0); HEMOGLOBIN 15.3 g/dl (14.0-18.0); IMMATURE GRANULOCYTES 0.2 % (0.0-5.0); LYMPH% 17.6 % (15-41); MEAN CELL VOLUME 96.6 fL CALC (80.0-100.0); MEAN CORPUSCULAR HGB 32.7 pG CALC (26.0-32.0); MEAN CORPUSCULAR HGB CONC 33.8 g/dL CAL (32.0-36.0); MONO% 11.1 % (2-13); NEUT# 3.92 thou/uL (1.82-7.42); NEUT% 67.8 % (42-76); RED BLOOD COUNT 4.68 mill/uL (4.70-6.10); RED CELL DISTRI WIDTH 11.6 % (11.5-15.5)
[2023-11-18] VITALS (9 sets, daily range): BP systolic 104–124; BP diastolic 69–77
[2023-11-18 01:07] LABS: ALBUMIN 4.1 g/dL (3.2-5.0); ALKALINE PHOSPHATASE 93 u/l (38-126); ANION GAP 9 (6-22 (CALC)); BILIRUBIN, TOTAL 0.5 mg/dL (0.2-1.3); BUN 18 mg/dL (8-23); BUN/CREATININE RATIO 20 (12-20 (CALC)); CARBON DIOXIDE 30 mmol/l (22-30); CHLORIDE 105 mmol/l (95-108); CREATININE 0.9 mg/dL (0.7-1.3); GFR FOR AFR.AMER. > 60 ML/MIN (>=60 (CALC)); GFR OTHER RACES > 60 ML/MIN (>=60 (CALC)); POTASSIUM 3.9 mmol/l (3.5-5.1); SGOT/AST 43 u/l (19-48); SODIUM 140 mmol/l (137-146); TOTAL PROTEIN 7.4 g/dL (6.3-8.2)
[2023-11-18 01:53] LABS: URINE BLOOD DIPSTICK Negative (NEGATIVE); URINE COLOR Yellow; URINE GLUCOSE - DIPSTICK Negative (NEGATIVE); URINE KETONE Negative (NEGATIVE); URINE LEUK ESTERASE Negative (NEGATIVE); URINE NITRITE - DIPSTICK Negative (Negative); URINE PH 6.5 (4.5-8.0); URINE PROTEIN - DIPSTICK Negative (NEG-TRACE); URINE SPECIFIC GRAVITY >=1.030; URINE UROBILINOGEN - DIPSTICK 0.2 E.U./dL (0.2)
== END 2023-11-18 02:10 | disposition home or self-care (01) | DRG 103 ==
LOC: ED 18:48
PROVIDERS: Emergency Medicine
DX: R51.9 Headache, unspecified (principal); G40.909 Epilepsy, unspecified, not intractable, without status epilepticus; T42.6X6A Underdosing of other antiepileptic and sedative-hypnotic drugs, initial encounter; Z91.128 Patient's intentional underdosing of medication regimen for other reason; F17.210 Nicotine dependence, cigarettes, uncomplicated

== ENCOUNTER 2023-12-07 12:50 | Emergency (ER) | payer OTHER ==
[~2023-12-07] VITALS: Ht 175.3 cm; Wt 65.0 kg
[2023-12-07] VITALS (8 sets, daily range): BP systolic 124–135; BP diastolic 64–81
[2023-12-07] MEDS ORDERED: KEPPRA500 M2 PO (14:25)
== END 2023-12-07 17:20 | disposition home or self-care (01) | DRG 392 ==
LOC: ED 12:50
DX: R10.2 Pelvic and perineal pain (principal); G40.909 Epilepsy, unspecified, not intractable, without status epilepticus; F17.210 Nicotine dependence, cigarettes, uncomplicated

== ENCOUNTER 2024-05-08 10:54 | Emergency (ER) | payer OTHER ==
[2024-05-08] VITALS (7 sets, daily range): BP systolic 117–138; BP diastolic 69–84
[~2024-05-08] VITALS: Ht 175.3 cm; Wt 65.0 kg
[2024-05-08 11:18] LABS: BASO% 0.8 % (0-3); EOS% 1.6 % (0-8); HEMOGLOBIN 14.6 g/dl (14.0-18.0); LYMPH% 18.1 % (15-41); MEAN CELL VOLUME 96.2 fL CALC (80.0-100.0); MEAN CORPUSCULAR HGB 32.7 pG CALC (26.0-32.0); NEUT# 3.55 thou/uL (1.82-7.42); NEUT% 71.5 % (42-76); RED BLOOD COUNT 4.47 mill/uL (4.70-6.10); RED CELL DISTRI WIDTH 11.7 % (11.5-15.5)
[2024-05-08 11:51] LABS: ALBUMIN 4.3 g/dL (3.2-5.0); ALKALINE PHOSPHATASE 75 u/l (38-126); ANION GAP 10 (6-22 (CALC)); BUN 12 mg/dL (8-23); BUN/CREATININE RATIO 12 (12-20 (CALC)); CARBON DIOXIDE 24 mmol/l (22-30); CHLORIDE 109 mmol/l (95-108); ESTIMATED GFR 85 ML/MIN (>=90 (CALC)); POTASSIUM 4.1 mmol/l (3.5-5.1); SGOT/AST 39 u/l (19-48); SODIUM 139 mmol/l (137-146); TOTAL PROTEIN 7.7 g/dL (6.3-8.2)
[2024-05-08 11:56] LABS: BILIRUBIN, TOTAL 0.9 mg/dL (0.2-1.3)
[2024-05-09] MEDS ORDERED: KEPPRA1000 MG PO (12:27)
== END 2024-05-08 13:51 | disposition home or self-care (01) | DRG 101 ==
LOC: ED 10:54
PROVIDERS: Family Medicine
DX: G40.909 Epilepsy, unspecified, not intractable, without status epilepticus (principal); F17.200 Nicotine dependence, unspecified, uncomplicated
CPT/HCPCS: J1953

== ENCOUNTER 2024-05-09 09:16 | Emergency (ER) | payer OTHER ==
[2024-05-09] VITALS (14 sets, daily range): BP systolic 113–138; BP diastolic 57–101
[~2024-05-09] VITALS: Ht 175.3 cm; Wt 78.0 kg
[2024-05-09 09:45] LABS: BASO% 0.8 % (0-3); EOS% 1.3 % (0-8); HEMATOCRIT 44.1 % (39.0-50.0); LYMPH% 18.8 % (15-41); MEAN CELL VOLUME 96.3 fL CALC (80.0-100.0); MEAN CORPUSCULAR HGB 32.8 pG CALC (26.0-32.0); MONO% 8.7 % (2-13); NEUT# 3.33 thou/uL (1.82-7.42); NEUT% 70.4 % (42-76); RED BLOOD COUNT 4.58 mill/uL (4.70-6.10); RED CELL DISTRI WIDTH 11.6 % (11.5-15.5)
[2024-05-09] MEDS ORDERED: MIDAZOLAM HCL 2 MG/2 ML VIAL IV ONE (09:50)
[2024-05-09 10:20] LABS: ALBUMIN 4.4 g/dL (3.2-5.0); POTASSIUM 4.3 mmol/l (3.5-5.1); TOTAL PROTEIN 7.6 g/dL (6.3-8.2)
[2024-05-09] MEDS ORDERED: KEPPRA1000 MG PO (12:27)
== END 2024-05-09 12:45 | disposition home or self-care (01) | DRG 101 ==
LOC: ED 09:16
PROVIDERS: Family Medicine
DX: G40.909 Epilepsy, unspecified, not intractable, without status epilepticus (principal); F17.200 Nicotine dependence, unspecified, uncomplicated
CPT/HCPCS: J1953

== ENCOUNTER 2024-11-10 01:23 | Emergency (ER) | payer OTHER ==
[2024-11-10] VITALS (7 sets, daily range): BP systolic 116–131; BP diastolic 68–81
[~2024-11-10] VITALS: Ht 175.3 cm; Wt 66.0 kg
[~2024-11-10 01:23] MED LIST changes: +BACTRIM DS1 TAB PO
[2024-11-10] MEDS ORDERED: methylPREDNISolone SODIUM SUCC 125 MG/2 ML SDV IV ONE (02:00)
[2024-11-10] MEDS ORDERED: IPRATROPIUM-Albuterol 0.5MG-2.5MG/3 ML NEB ONE (02:00)
[2024-11-10] MEDS ORDERED: DiphenhydrAMINE HCL 50 MG/ML SDV IV ONE (02:05)
[2024-11-10 02:28] LABS: BASO% 1.1 % (0-3); HEMATOCRIT 41.5 % (39.0-50.0); HEMOGLOBIN 13.9 g/dl (14.0-18.0); IMMATURE GRANULOCYTES 0.2 % (0.0-5.0); LYMPH% 18.4 % (15-41); MEAN CELL VOLUME 96.5 fL CALC (80.0-100.0); MEAN CORPUSCULAR HGB 32.3 pG CALC (26.0-32.0); MEAN CORPUSCULAR HGB CONC 33.5 g/dL CAL (32.0-36.0); MONO% 15.3 % (2-13); NEUT# 2.65 thou/uL (1.82-7.42); RED BLOOD COUNT 4.3 mill/uL (4.70-6.10); RED CELL DISTRI WIDTH 12.2 % (11.5-15.5)
== END 2024-11-10 04:00 | disposition home or self-care (01) | DRG 153 ==
LOC: ED 01:23
PROVIDERS: Family Medicine
DX: J06.9 Acute upper respiratory infection, unspecified (principal)
CPT/HCPCS: J1200

== ENCOUNTER 2024-11-26 20:01 | Emergency (ER) | payer OTHER ==
[2024-11-26] VITALS (15 sets, daily range): BP systolic 97–122; BP diastolic 52–74
[~2024-11-26] VITALS: Ht 175.3 cm; Wt 65.0 kg
[2024-11-26] MEDS ORDERED: SODIUM CHLORIDE 0.9% 1,000 ML IV ONE ×2 (20:10→22:00)
[2024-11-26 20:34] LABS: EOS% 1.6 % (0-8); HEMATOCRIT 42.6 % (39.0-50.0); HEMOGLOBIN 14.3 g/dl (14.0-18.0); MEAN CELL VOLUME 98.4 fL CALC (80.0-100.0); MEAN CORPUSCULAR HGB CONC 33.6 g/dL CAL (32.0-36.0); MONO% 7.8 % (2-13); NEUT# 3.27 thou/uL (1.82-7.42); NEUT% 65.6 % (42-76); RED BLOOD COUNT 4.33 mill/uL (4.70-6.10); RED CELL DISTRI WIDTH 12.2 % (11.5-15.5)
[2024-11-26 20:45] LABS: ALBUMIN 4.3 g/dL (3.2-5.0); ALKALINE PHOSPHATASE 76 u/l (38-126); ANION GAP 10 (6-22 (CALC)); BUN 15 mg/dL (8-23); BUN/CREATININE RATIO 15 (12-20 (CALC)); CARBON DIOXIDE 27 mmol/l (22-30); CHLORIDE 105 mmol/l (95-108); ESTIMATED GFR 84 ML/MIN (>=90 (CALC)); POTASSIUM 3.9 mmol/l (3.5-5.1); SGOT/AST 36 u/l (19-48); SODIUM 139 mmol/l (137-146); TOTAL PROTEIN 7.4 g/dL (6.3-8.2)
[2024-11-26 20:46] LABS: BILIRUBIN, TOTAL 0.9 mg/dL (0.2-1.3); ETHYL ALCOHOL < 10 mg/dl (0-30)
[2024-11-26 22:06] LABS: URINE BILIRUBIN - DIPSTICK Negative (NEGATIVE); URINE BLOOD DIPSTICK Small (NEGATIVE); URINE GLUCOSE - DIPSTICK Negative (NEGATIVE); URINE KETONE 40 mg/dL (NEGATIVE); URINE LEUK ESTERASE Negative (NEGATIVE); URINE NITRITE - DIPSTICK Negative (Negative); URINE PH 5.5 (4.5-8.0); URINE PROTEIN - DIPSTICK Negative (NEG-TRACE); URINE UROBILINOGEN - DIPSTICK 0.2 E.U./dL (0.2)
[2024-11-26 22:08] LABS: URINE COLOR Yellow
[2024-11-26 22:14] LABS: URINE RBC 0-2 RBC/hpf (0-5); URINE SQUAMOUS EPITHELIAL CELL FEW EPI/hpf (0-FEW); URINE WBC 0-2 WBC/hpf (0-5)
== END 2024-11-27 00:20 | disposition home or self-care (01) ==
LOC: ED 20:01
PROVIDERS: Family Medicine
DX: G40.909 Epilepsy, unspecified, not intractable, without status epilepticus (principal); T42.76XA Underdosing of unspecified antiepileptic and sedative-hypnotic drugs, initial encounter; Z91.128 Patient's intentional underdosing of medication regimen for other reason; F17.200 Nicotine dependence, unspecified, uncomplicated
CPT/HCPCS: J1953

== ENCOUNTER 2024-12-20 20:40 | Emergency (ER) | payer OTHER ==
[~2024-12-20] VITALS: Ht 175.3 cm; Wt 66.0 kg
[2024-12-20 21:29] VITALS: BP 134/76
== END 2024-12-20 21:58 | disposition home or self-care (01) | DRG 125 ==
LOC: ED 20:40
PROC: 0HQ1XZZ Repair Face Skin, External Approach (ICD-10-PCS; principal; 2024-12-20)
DX: S01.111A Laceration without foreign body of right eyelid and periocular area, initial encounter (principal); G40.909 Epilepsy, unspecified, not intractable, without status epilepticus; F17.200 Nicotine dependence, unspecified, uncomplicated; W22.8XXA Striking against or struck by other objects, initial encounter; Y92.009 Unspecified place in unspecified non-institutional (private) residence as the place of occurrence of the external cause